=== PATIENT | female | born 1960 | race Caucasian/White ===

== ENCOUNTER 2019-04-11 17:34 | Emergency (ER) | payer BC, SELFPAY ==
[2019-04-11 17:40] VITALS: BP 114/49; PULSE 88; RESP 18; TEMP 36.9; O2SAT 97; BMI 27.7
[2019-04-11 18:43] VITALS: BP 125/65; PULSE 92; RESP 16; O2SAT 96
[2019-04-11] MEDS: 0.9% Normal Saline 1,000 ML 1000 ML IV ×2 (19:37→21:13)
[2019-04-11] MEDS: Ondansetron 4 MG/2 ML Vial IV (19:38)
[2019-04-11 19:39] VITALS: BP 112/66; BP 114/63; BP 86/52; PULSE 112; PULSE 89
[2019-04-11 19:49] LABS: Absolute Lymphocyte Count 1.25 X10^3/uL (0.83-4.51); Basophil# 0.09 X10^3/uL; Basophil% 0.7 % (0-1); Eosinophil# 1.07 X10^3/uL; Eosinophils% 8.1 % (0-5); Hematocrit 49.6 % (37-47); Hemoglobin 16.6 g/dL (12.0-15.0); Lymphocyte # 1.25 X10^3/ul (4.0); Lymphocyte % 9.4 % (19-41); Mean Corp Hgb Conc 33.5 g/dL (32-36); Mean Corpuscular Hgb 30.1 pg (27.0-32.0); Monocyte# 0.81 X10^3/uL; Monocyte% 6.1 % (0-10); NRBC Flagged by Analyzer 0 % (0-5); Neutrophil # 9.99 X10^3/uL (2.7-7.7); Neutrophil % 75.2 % (47-70); Platelet Count 353 K/mm3 (150-450); RBC Distribution Width CV 12.8 % (11.6-14.6); RBC Distribution Width SD 42.4 fl (35.1-43.9); Red Blood Count 5.51 M/mm3 (4.2-5.4); White Blood Count 13.3 K/mm3 (4.4-11.0)
--- NOTE | 2019-04-11 19:49 | RAD_ITS ---
STUDY: X-RAY - ACUTE ABDOMINAL SERIES REASON FOR EXAM: Female, 58 years old. , No cramping TECHNIQUE: Single view of the chest. Supine, 3 view(s) of the abdomen were obtained. COMPARISON: None. FINDINGS: The lungs are clear and expanded. Normal size heart. Normal mediastinum and ryann. Normal visualized pulmonary arteries. Normal visualized aortic arch and descending thoracic aorta. There is a non-specific bowel gas pattern. Mildly gaseous distended colon without sign of obstruction. The soft tissue structures of the abdomen and pelvis are unremarkable. Normal visualized osseous structures. RAD/Acute Abdomen Inc Chest IMPRESSION: Mildly gaseous distended colon with no sign of obstruction. Electronically Signed: Estuardo Gutierrez DO at 20:26 EST Tel [phone], Service support ,
[2019-04-11 19:58] LABS: ALB/GLOB Ratio 0.9 RATIO (0.9-2.4); AST(SGOT) 18 U/L (15-37); Alanine Aminotransfer ALT/SGPT 38 U/L (13-56); Albumin, Serum 3.5 g/dL (3.2-5.0); Alkaline Phosphatase 94 U/L (45-117); Anion Gap 10 (5-15); BUN 21 mg/dL (7-18); BUN/Creat Ratio 24.1 RATIO (10-20); Calcium,Total 9.6 mg/dL (8.5-10.1); Chloride 105 mmol/L (98-107); Creatinine, Serum 0.87 mg/dL (0.55-1.02); EST Glomerular Filtration Rate 72 mL/min (>60); Est Glom Filt Rate - Afr Amer 87 mL/min (>60); Estimated Creatinine Clearance 64.97 ml/min; Globulin 3.9 g/dL (2.2-4.2); Glucose 138 mg/dL (74-106); Lipase 109 U/L (73-393); Potassium 3.3 mmol/L (3.5-5.1); Protein, Total 7.4 g/dL (6.4-8.2); Sodium Level 139 mmol/L (136-145)
[2019-04-11 20:29] LABS: White Blood Cells 0 SEEN /hpf (0-5)
[2019-04-11 20:32] LABS: Color, Urine Yellow (Yellow); Glucose, Dipstick Normal (Normal); Leukocyte Esterase-Dipstick Negative /ul (Negative); Nitrite-Dipstick Negative (Negative); Occult Blood-Urine 150 /ul (Negative); Protein-Dipstick 15 mg/dl (Negative); Urine Bilirubin Dipstick Negative (Negative); Urine Clarity Sl. Cloudy (Clear); Urine Urobilinogen Normal (Normal)
[2019-04-11 20:34] LABS: Ketone-Dipstick 150 mg/dl (Negative)
[2019-04-11 20:44] LABS: Squamous Epithelial Cells - UA 0-5 SEEN /hpf (5-10)
[2019-04-11 20:45] LABS: Mucous, Urine 1+ /hpf (<or=2+)
[2019-04-11 20:46] LABS: Bacteria RARE /hpf (None Seen); Red Blood Cells-Urine 0-5 SEEN /hpf (0-5)
[2019-04-11 20:51] VITALS: BP 124/67; PULSE 80; RESP 16; O2SAT 98
--- NOTE | 2019-04-11 21:48 | ED.VISSUMM ---
- ER Visit Summary Date of Service: 04/11/19 Chief Complaint: Diarrhea and abdominal pain History of Present Illness: The patient is a 58 F who presents with diarrhea and abdominal pain that began today. Patient describes the pain as aching and cramping. Patient states her pain is worse with drinking. Patient states her pain is diffuse across her abdomen. Patient admits to some subjective chills. Patient admits to nausea but denies any vomiting. Patient admits to some generalized weakness and headaches. Patient also admits to some mild rhinorrhea and cough. Physical Examination: Vital signs are stable. Patient is afebrile. Patient is in no acute distress. Oral mucosa is pink and moist. Neck is supple. Trachea is midline. There is no JVD. Heart was regular rate and rhythm. Lungs are clear and equal bilaterally. Abdomen is soft. Bowel sounds are normal. There is mild diffuse tenderness. There is no rebound or guarding noted. Cranial nerves II through XII are intact. There are no focal motor or sensory deficits noted. Test Results: CBC shows a leukocytosis of 13.3. Comprehensive metabolic profile was essentially within normal limits. Urinalysis was within normal limits. Acute abdominal x-rays were obtained. There is no acute intra-abdominal process. This was interpreted by the radiologist and myself. Emergency Department Course and Treatment: Patient was given IV fluids. Orthostatic vital signs were obtained and were positive with standing. Patient was given a repeat liter of normal saline. Patient felt better on reevaluation. Patient was instructed to drink plenty of fluids. Patient was instructed to follow-up with her primary care physician in 5 to 7 days. Patient understood and was agreeable with the plan. All questions were answered. Disposition: Discharge home Impression: 1. Dehydration This note was generated with Bahoui dictation software. It may contain incorrect words, spelling, and punctuation that were not noted in review of the chart prior to signing ED Disposition - Plan for ED Patient: Disposition: Home or Assisted Living Diagnosis: Dehydration Instructions: DEHYDRATION (8y-Adult), DIARRHEA, Viral (Child) (Adult) Referrals: Renetta Meyer MD [Primary Care Provider] - 3-5 Days
[2019-04-11 22:13] VITALS: BP 105/56; PULSE 82; RESP 16; RESP 22; O2SAT 99
== END 2019-04-11 22:29 | disposition home or self-care (01) ==
PROVIDERS: Emergency Provider Emergency Medicine; Family Provider Internal Medicine; PCP Internal Medicine
DX: E86.0 Dehydration (principal)
CPT/HCPCS: 74022; 80053; 81001; 83690; 85025; 96361; 96374; 99285; A4216; J2405

== ENCOUNTER 2020-03-23 06:15 | Day surgery (SDC) | payer OTHER, SELFPAY ==
--- NOTE | 2020-03-18 10:50 | EKG12_ITS ---
Test Reason : PREOP Blood Pressure : / mmHG Vent. Rate : 071 BPM Atrial Rate : 071 BPM P-R Int : 140 ms QRS Dur : 082 ms QT Int : 406 ms P-R-T Axes : -04 034 060 degrees QTc Int : 441 ms Normal sinus rhythm Normal ECG Confirmed by EZEKIEL FAULKNER, TERESA ([id number]), technical writer and editor ILIANA SANTOS ([id number]) on 03/19/2020 8:54:51 A M Referred By: Massiel Salinas Confirmed By:RAPHAEL FALCON MD
[2020-03-18 11:36] LABS: Hematocrit 45.9 % (37-47); Hemoglobin 15.1 g/dL (12.0-15.0); Mean Corp Hgb Conc 32.9 g/dL (32-36); Mean Corpuscular Volume 91.1 fL (81-99); Mean Platelet Vol. 9.9 fl (6.2-12.0); Platelet Count 352 K/mm3 (150-450); RBC Distribution Width CV 13.1 % (11.6-14.6); RBC Distribution Width SD 43.8 fl (35.1-43.9); Red Blood Count 5.04 M/mm3 (4.2-5.4); White Blood Count 7.1 K/mm3 (4.4-11.0)
[2020-03-23] VITALS (8 sets, daily range): BP systolic 101–117; BP diastolic 54–70; PULSE 58–77; RESP 16; TEMP 36.1–36.6; O2SAT 95–99; BMI 28.8
[2020-03-23] MEDS: Lactated Ringers 1,000 ML 100 ML IV (07:20)
--- NOTE | 2020-03-23 08:39 | PCM.OPRPT ---
Problem List (1) Stress incontinence Status: Acute Report of Operation Date of Procedure: 03/23/20 Pre-Operative Diagnosis: stress incontinence Post-Operative Diagnosis: same Surgery/Procedure Performed:: midurethral sling, cystoscopy resistance machine welder setter: Rosalia Type of Anesthesia:: General Estimated Blood Loss (mL): 10cc Description of Procedure: The patient is a 59yo female with stress incontinence. She now presents for surgical intervention with sling insertion. Informed consent was obtained after discussing the procedure in detail including risks and COVID-19. The patient was taken to the operating room and placed on the operating table. Anesthesia monitored the head, neck, airway, vital signs and IV access throughout the case. Once anesthesia was appropriately administered, the patient was placed into dorsal lithotomy and Trendelenburg position, and was prepped and draped in usual sterile fashion. A stafford catheter was inserted and the bladder was drained. The submucosa of the midurethra was injected with 1% lidocaine for hydrostatic dissection and hemostatic control. A midline incision was made, vertical and approximately 2 cm in length. Sharp and blunt dissection was performed on either side of the urethra with care taken to avoid entrance into the urethra. The Altis sling was then inserted into the obturator complexes on each side using the trocars. The sling was positioned against the urethra in flat position. The tensioning suture was then cut. The incision was closed using running, interlocking 2-0 vicryl. The stafford was removed, and the cystoscope was inserted through the urethra under direct visualization into the urinary bladder. There were no injuries or foreign body detected. The bladder was left with small amount of fluid, the cystoscope was removed. The patient was awakened and taken to the recovery room in good condition. There were no complications during the procedure. Grafts/Implants Used: Altis midurethral sling - Complications none - Admit VTE Documentation VTE Present on Admission: Yes VTE Mechan Device Prophylaxis: SCD's VTE Pharm Prophylaxis ordered?: No Reason prophylaxis not ordered:: Treatment Not Indicated
--- NOTE | 2020-03-23 08:42 | DCINST_ITS ---
Discharge Diet: No Restrictions Discharge Activity: May not drive while taking narcotic pain medications., May Shower, - - no tub bathing, swimming or hot tubs. No lifting over 5 pounds, no exercise, no strenuous activity. No sexual activity. May resume sexual activity in: 4 weeks Call your doctor if your incision/area has: Continuous Slow Oozing, Sudden Increased Bleeding, Increased Pain/ Swelling, Increased Redness, Foul Smelling Discharge Call your doctor if you observe: Fever of 101 or Higher, Inability to urinate, Inability to have a bowel movement, Calf discomfort, Uncontrolled pain Allergies/Adverse Reactions: Allergies banana Allergy (Verified 03/23/20 06:58) Food Allergy corn Allergy (Verified 03/23/20 06:58) Shortness of breath kiwi Allergy (Verified 03/23/20 06:58) Rash latex Allergy (Verified 03/23/20 06:58) PT UNSURE OF REACTION probable reaction due to food allergies per pt melon Allergy (Verified 03/23/20 06:58) Rash nut - unspecified Allergy (Verified 03/23/20 06:58) Nausea/Vom/Diarrhea pistachio strawberry Allergy (Verified 03/23/20 06:58) Rash sulfamethoxazole [From Bactrim] Allergy (Verified 03/23/20 06:58) Hives trimethoprim [From Bactrim] Allergy (Verified 03/23/20 06:58) Hives walnut Allergy (Verified 03/23/20 06:58) Anaphylaxis mepivacaine [From Carbocaine] Adverse Reaction (Verified 03/23/20 06:58) Other MIGRAINE Medications to take at Discharge Cholecalciferol (Vitamin D3) [Vitamin D3] 2,000 unit PO DAILY 03/16/20 Grape Seed Extract [Meganatural-Bp] 150 mg PO DAILY 03/16/20 Mv-Mn/Folic AC/Calcium/Vit K1 [Women's 50 Plus Multivit Tab] 1 ea PO DAILY 03/16/20 Turmeric/Herbal Complex No.278 [in-Fla-Mend Capsule] 150 mg PO DAILY 03/16/20 Vitamin B Complex 1 ea PO DAILY 03/16/20 Cephalexin [Keflex] 500 mg PO Q12 3 Days #6 cap 03/23/20 Oxycodone HCl/Acetaminophen [Percocet 5/325] 1 tablet PO Q8H PRN PRN 7 Days #20 tablet 03/23/20 The following prescriptions were given: Cephalexin [Keflex] 500 mg PO Q12 3 Days #6 cap Transmission Status: Pending to [facility] Oxycodone HCl/Acetaminophen [Percocet 5/325] 1 tablet PO Q8H PRN PRN 7 Days #20 tablet PRN Reason: Pain Transmission Status: Sent to [facility] Primary Care Physician: Renetta Meyer MD [Primary Care Provider] - Test Results: Test results from this visit will be discussed in further detail at your follow- up appointment, if applicable. Please Follow Up With: Massiel Salinas MD When: call office for appt Proposed Discharge Date: 03/23/20
[2020-03-23] MEDS: Cefazolin 2 GM in 0.9% Normal Saline 100 ML IV (08:56)
[2020-03-23] MEDS: Lidocaine 1% /Epi 1:100 (20ml) 20 ML Vial (09:18)
== END 2020-03-23 12:00 | disposition home or self-care (01) ==
LOC: SDC 06:19 → AC 06:19
PROVIDERS: Anesthesiology; PCP Internal Medicine; Referring Provider Urology; Visit Provider Urology
PROC: 0TJB8ZZ Inspection of Bladder, Via Natural or Artificial Opening Endoscopic (ICD-10-PCS; CPT 57288; principal; 2020-03-23 08:30)
DX: N39.46 Mixed incontinence (principal); J45.909 Unspecified asthma, uncomplicated; Z20.828 Contact with and (suspected) exposure to other viral communicable diseases; Z87.891 Personal history of nicotine dependence
CPT/HCPCS: 00860; 57288; 36415; 85027; 87426; 93005; C9803; J7120; J2405

== ENCOUNTER 2024-08-25 18:00 | Outpatient (RCR) | payer OTHER, SELFPAY ==
--- NOTE | 2024-07-17 13:14 | HP.OTEVAL_ITS ---
Patient's Visit Information Visit Information Visit Information: NAYELI COMER is a 63 year old F, referred to Occupational Therapy by Dr. 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 Date of Evaluation: 07/17/24 Occupational Therapist: BHAVESH Mendez/Danay, CHT Subjective Subjective: This 63 year old female was seen for OT eval with dx of Breast cancer metastasized to axillary lymph node. pt states she was dx in 2024. underwent left mastectomy on 2024 lymph node removal of 2 both positive. pt states she had complications with drain tube getting clogged a few times shor tly after her sx. Pt states she did go to PT for one session to get exercises and fitting for compression sleeve ( that she did wear today) pt states she stopped wrapping her chest wall after tubes were out and incisions were healed. Pt states she returned to her Dr. and they advised to keep wrapping her chest wall as she demo more swelling. pt also states she has noticed she has had increase difficulty with left shoulder ROM and pulling of under her arm and pec region- with very sensitive skin. Pt states she would like to know what more she can do to improve her left shoulder ROM- decrease scar and skin sensitivity and work with mt. her lymphedema. Pain left arm/chest: Current Pain Intensity: 2 Pain Intensity Range: 4 ROM Shoulder: right 170 left 150 Lymphedema (Circumferential Measure) MCP: right 18 left 17.5 Wrist: right 15 left 16 Lower forearm: right 17cm left 16.4 Largest forearm: right 24cm left 25 Elbow: right 25 left 25 Largest humerus: 28 left 29 cm Axcillary: right 31 cm left 33 Goals Goal: Patient will demonstrate a 20% reduction in edema by discharge: Yes Goal: Patient will demonstrate adequate knowledge of self-bandaging by the end of the first week.: Yes Goal: Patient will demonstrate adequate knowledge of self-massage by the end of the second week.: Yes Goal: Patient will demonstrate adequate knowledge of skin care and precautions by the end of the first week.: Yes Goal: Patient will demonstrate adequate knowledge of therapeutic exercises by discharge.: Yes Goal: Patient will select an appropriate compression garment and demonstrate adequate knowledge of correct donning technique, care and wearing schedule by discharge.: Yes Goal: Patient will voice understanding of need to replace compression garment every four to six months by discharge.: Yes Goal: Patient will demonstrate ROM WFL by discharge.: Yes Rehabilitation General Assessment: Pt currently demo with a decrease in left shoulder ROM, skin and scar hyper sensitivity noted axillary web/cord of left UE. Pt also is demo swelling of chest wall below incision but pt still recently underwent her sx. Pt demo need for skilled OT services 1-2x week for 4 weeks. Therapist will initiate desensitization to scar and skin to decrease pain, as well as ed. pt and pts spouse on self manual lymph massage, and use of compression wraps. Therapist will ed. pt on left shoulder ROM and posture to improve pts functional ROM and improve skin elasticity to decrease pain and feelling of tightness while pt uses left UE for ADLs and IADLs. Pt demo understanding and agrees to POC. Rehabilitation Potential: Good Anticipated Interventions Anticipated Interventions: A/AAROM/PROM, Desensitization, Education re assistive Equipment, Education re Diagnosis, Manual Lymph Drainage, Education re Life-long lymphedema Management, Education re Self-Bandaging Techniques, Education re Skin Care and Precautions, Education re Self Massage Techniques, Education re Correct Donning Tech,Care&Wearing Sched Comp Garments, Caregiver Training and Home Program Visit Plan Frequency: 1-2x /Week Duration: 4 Weeks TEXT: Thank you for the opportunity to evaluate your patient. For Medicare and Medicare HMO plans, please review the plan of care and approve it. It will need to be FAXED BACK to us at [phone] for Medicare purposes. Please let me know if there are questions or concerns regarding this plan of care. Physician Signature: Date:
--- NOTE | 2024-08-25 19:11 | HP.OTDCSUM ---
Discharge Summary D/C Summary: It has been my pleasure to treat NAYELI COMER under orders from Dr. Nayeli Sparrow DO, for the diagnosis of left breast cancer with mets to axillary nodes for a total of 7 visit(s). Please see the following information for a summary of their discharge status. Overall Improvement % Improvement: 80 Objective Objective/Function: shoulder flexion 165* ER is WNL. pt reports she still feels some tightness but overall significantly less. pt is back to the pool swimming and feeling good. pt states some sensations are returning and this does make strange feelings under her arm, but understands what is happening. Goals Patient Goals: Regain Mobility, Decrease Swelling/Stiffness, Decrease Sensitivity and Learn how to Manage Lymphedema Goal: Patient will demonstrate a 20% reduction in edema by discharge: Yes Goal: Patient will demonstrate adequate knowledge of self-bandaging by the end of the first week.: Yes Goal Progress: Goal Met Goal: Patient will demonstrate adequate knowledge of self-massage by the end of the second week.: Yes Goal Progress: Goal Met Goal: Patient will demonstrate adequate knowledge of skin care and precautions by the end of the first week.: Yes Goal Progress: Goal Met Goal: Patient will demonstrate adequate knowledge of therapeutic exercises by discharge.: Yes Goal Progress: Goal Met Goal: Patient will select an appropriate compression garment and demonstrate adequate knowledge of correct donning technique, care and wearing schedule by discharge.: Yes Goal Progress: Goal Met Goal: Patient will voice understanding of need to replace compression garment every four to six months by discharge.: Yes Goal: Patient will demonstrate ROM WFL by discharge.: Yes Goal Progress: Goal Met Plan Plan: pt to cont to monitor for sighs of swelling- using compression sleeve with activity. D/C Information d/c sentence: If there are questions or concerns regarding this patient's occupational therapy, please fell free to call me at [phone]. Thank you for the referral of this patient. Sincerely, Freda Cordero, OTR/L, CHT
== END 2024-08-25 19:00 | disposition home or self-care (01) ==
LOC: OT 18:00
PROVIDERS: PCP Internal Medicine; Referring Provider Surgery; Visit Provider Surgery
DX: C50.912 Malignant neoplasm of unspecified site of left female breast (principal); C77.3 Secondary and unspecified malignant neoplasm of axilla and upper limb lymph nodes; Z91.89 Other specified personal risk factors, not elsewhere classified
CPT/HCPCS: 97140; 97166; 97530